=== PATIENT | male | born 1980 | race Caucasian/White ===

== ENCOUNTER 2024-03-17 16:05 | Emergency (ER) | payer OTHER ==
[2024-03-17 16:15] VITALS: BP 157/98; PULSE 94; RESP 20; TEMP 99
[2024-03-17] MEDS: IBUPROFEN 600 MG TABLET (FP) PO ONE (16:50)
[2024-03-17] MEDS ORDERED: KETOROLAC TROMETHAMINE 30 MG/1 ML VIAL ONE (17:42)
[2024-03-17] MEDS: KETOROLAC TROMETHAMINE 15 MG/ML VIAL IM ONE (17:46)
== END 2024-03-17 18:48 | disposition home or self-care (01) ==
LOC: JERFT 16:05
PROC: 3E0133Z Introduction of Anti-inflammatory into Subcutaneous Tissue, Percutaneous Approach (ICD-10-PCS; principal; 2024-03-17)
DX: S99.911A Unspecified injury of right ankle, initial encounter (principal); X50.1XXA Overexertion from prolonged static or awkward postures, initial encounter
CPT/HCPCS: 73610-TC-RT-FY; 73630-TC-RT-FY; 96374; 99284-25